=== PATIENT | female | born 1955 | race Caucasian/White ===

== ENCOUNTER 2019-12-21 12:35 | Inpatient (IN) | payer MEDICARE ==
[~2019-12-21] VITALS: Ht 157.5 cm; Wt 85.5 kg
--- NOTE | 2019-12-21 12:59 | NUR ---
SEE TRIAGE NOTE. PULSE OX AND BP CUFF PLACED. URINE COLLECTED/AT BS. MED STUDENT IN TO ASSESS.
--- NOTE | 2019-12-21 13:22 | NUR ---
REPORT TO RAMONITA, TRANSFER OF CARE AT THIS TIME.
--- NOTE | 2019-12-21 13:23 | NUR ---
PT SLEEPING, DESAT TO 83% ON RA. 2LITERS VIA NC PLACED. MED STUDENT IN TO SEE.
[2019-12-21] MEDS ORDERED: PROMETHAZINE 25 MG/ML, 1ML IM ONE ×2 (13:30→23:30)
[2019-12-21] MEDS ORDERED: HYDROmorphone 2 MG/ML, 1ML IVPush PRN (13:30)
[2019-12-21] MEDS ORDERED: SODIUM CHLORIDE FLUSH 10ML SYR IVF ONE (13:30)
[2019-12-21] MEDS ORDERED: SODIUM CHLORIDE 0.9% 1,000ML IVBOLUS ONE (13:30)
[2019-12-21] MEDS ORDERED: PROMETHAZINE 25 MG/ML, 1ML ONE (13:37)
[2019-12-21] MEDS ORDERED: HYDROmorphone 1 MG/ML, 1ML INJ ONE (13:37)
[2019-12-21 13:46] LABS: BASOPHILS # (AUTO) 0.05 x10^3/uL (0-0.1); BASOPHILS % (AUTO) 0 % (0-1); EOSINOPHILS # (AUTO) 0.01 x10^3/uL (0-0.4); EOSINOPHILS % (AUTO) 0 % (1-7); LYMPHOCYTES # (AUTO) 1.04 x10^3/uL (1-3.4); LYMPHOCYTES % (AUTO) 6 % (22-44); MD NO; MEAN CORPUSCULAR HGB CONC 33.7 g/dL (32.4-35.8); MEAN CORPUSCULAR VOLUME 89.2 fL (80-100); MEAN PLATELET VOLUME 10.5 fL (7.4-10.4); MONOCYTES # (AUTO) 0.11 x10^3/uL (0.2-0.8); MONOCYTES % (AUTO) 1 % (2-9); NEUTROPHILS # (AUTO) 15.89 x10^3/uL (1.8-6.8); NEUTROPHILS % (AUTO) 93 % (42-75); PLATELET COUNT 241 x10^3/uL (130-400); RED CELL DISTRIBUTION WIDTH 14.4 % (9.6-15.2)
[2019-12-21 13:54] LABS: INTERNATIONAL NORMALIZED RATIO 0.97 (0.93-1.1)
[2019-12-21 13:58] LABS: ALANINE AMINOTRANSFERASE 23 U/L (12-78); ALBUMIN 3.9 g/dL (3.4-5.0); ANION GAP 8 mmol/L (5-15); CALCIUM 9.1 mg/dL (8.5-10.1); CHLORIDE 113 mmol/L (98-107); CREATININE 1.41 mg/dL (0.55-1.02)
[2019-12-21 14:00] LABS: ALKALINE PHOSPHATASE 78 U/L (45-117); BILIRUBIN,TOTAL 0.6 mg/dL (0.2-1.0); TOTAL PROTEIN 7.7 g/dL (6.4-8.2)
--- NOTE | 2019-12-21 14:05 | NUR ---
PT MEDICATED ORDRED. PT ASLEEP AT THIS TIME. WAITING FOR RESULTS.
[2019-12-21] MEDS ORDERED: SPIR25TA5 PO (14:31)
[2019-12-21] MEDS ORDERED: VERA120T8 PO (14:31)
[2019-12-21] MEDS ORDERED: PRAV20TA2 PO (14:31)
[2019-12-21] MEDS ORDERED: LISI40TA PO (14:31)
[2019-12-21] MEDS ORDERED: OMEP-110 PO (14:31)
[2019-12-21] MEDS ORDERED: CEFTRIAXONE PMX 1GM/50ML 50 ML IV ONE (15:00)
[2019-12-21] MEDS ORDERED: METRONIDAZOLE PMX 500MG/100ML 100 ML IV ONE (15:00)
[2019-12-21] MEDS ORDERED: SODIUM CHLORIDE 0.9%, 500ML IVBOLUS ONE (15:00)
--- NOTE | 2019-12-21 15:00 | NUR ---
PT TO CT.
[2019-12-21] MEDS ORDERED: OMNIPAQUE 350 MG/ML, 100ML BOTTLE ONE (15:29)
[2019-12-21] MEDS ORDERED: CEFTRIAXONE PMX 1GM/50ML 50 ML ONE (15:59)
[2019-12-21] MEDS ORDERED: METRONIDAZOLE PMX 500MG/100ML 100 ML ONE (15:59)
--- NOTE | 2019-12-21 16:15 | NUR ---
ANTIBITICS STARTED PER MD ORDER. PER DR. HATHAWAY NO BLOOD CULTURES NEEDED BEFORE ANTIBIOTICS.
[2019-12-21 16:19] LABS: MICROSCOPIC AUTO
--- NOTE | 2019-12-21 16:43 | NUR ---
PT REQUESTING TYLENOL FOR COBB. AWARE.
[2019-12-21] MEDS ORDERED: ACETAMINOPHEN 325 MG TABLET ONE (17:26)
[2019-12-21] MEDS: ACETAMINOPHEN 325 MG TABLET PO PRN (17:30)
[2019-12-21] MEDS: METRONIDAZOLE PMX 500MG/100ML 100 ML IV SCH (17:30)
[2019-12-21] MEDS: HEPARIN 5,000 UNITS/ML, 1ML SQ SCH (17:30)
[2019-12-21] MEDS ORDERED: CEFTRIAXONE PMX 1GM/50ML 50 ML IV SCH (17:30)
[2019-12-21] MEDS: LACTOBACILLUS CHEW TABLET PO SCH ×4 (18:00→21:55)
--- NOTE | 2019-12-21 19:40 | NUR ---
TASK RN, COVERING MEAL BREAK. ATTEMPT TO CALL REPORT. RECEIVING RN NOT AVAILABLE, WILL CALL BACK.
--- NOTE | 2019-12-21 20:09 | NUR ---
REPORT TO MICHAEL WHEELER READY FOR TRANSPORT.
[2019-12-21] MEDS: PRAVASTATIN 20 MG TABLET PO SCH ×3 (21:00→21:55)
[2019-12-21] MEDS: SODIUM CHLORIDE 0.9% 1,000 ML IV SCH (21:05)
[2019-12-21] MEDS ORDERED: DICYCLOMINE 10 MG/ML, 2ML IM ONE (21:30)
[2019-12-21] MEDS: ONDANSETRON 2MG/ML, 2ML IVPush PRN (22:13)
[2019-12-21] MEDS ORDERED: morphine SULFATE 10 MG/ML, 1ML IVPush ONE (23:30)
[2019-12-22] MEDS: HEPARIN 5,000 UNITS/ML, 1ML SQ SCH ×3 (01:13→17:36)
[2019-12-22] MEDS: METRONIDAZOLE PMX 500MG/100ML 100 ML IV SCH ×3 (01:37→17:36)
[2019-12-22 01:40] LABS: CLOSTRIDIUM DIFFICILE ANTIGEN NEGATIVE; CLOSTRIDIUM DIFFICILE TOXIN NEGATIVE (Negative)
[2019-12-22 03:29] VITALS: BP 158/89
[2019-12-22] MEDS: LACTOBACILLUS CHEW TABLET PO SCH ×4 (03:33→20:30)
[2019-12-22 05:27] LABS: BASOPHILS # (AUTO) 0.05 x10^3/uL (0-0.1); BASOPHILS % (AUTO) 0 % (0-1); EOSINOPHILS # (AUTO) 0.01 x10^3/uL (0-0.4); EOSINOPHILS % (AUTO) 0 % (1-7); LYMPHOCYTES # (AUTO) 2.11 x10^3/uL (1-3.4); LYMPHOCYTES % (AUTO) 14 % (22-44); MD NO; MEAN CORPUSCULAR HEMOGLOBIN 29.9 pg (27.0-34.8); MEAN CORPUSCULAR HGB CONC 33.5 g/dL (32.4-35.8); MEAN CORPUSCULAR VOLUME 89.2 fL (80-100); MEAN PLATELET VOLUME 10.5 fL (7.4-10.4); MONOCYTES % (AUTO) 6 % (2-9); NEUTROPHILS # (AUTO) 11.86 x10^3/uL (1.8-6.8); NEUTROPHILS % (AUTO) 79 % (42-75); PLATELET COUNT 208 x10^3/uL (130-400); RED BLOOD COUNT 4.48 x10^6/uL (3.82-5.3); RED CELL DISTRIBUTION WIDTH 14.5 % (9.6-15.2)
[2019-12-22] MEDS: ONDANSETRON 2MG/ML, 2ML IVPush PRN ×2 (05:33→09:13)
[2019-12-22 05:35] LABS: ALBUMIN 3.3 g/dL (3.4-5.0); ANION GAP 5 mmol/L (5-15); CALCIUM 8.2 mg/dL (8.5-10.1); CHLORIDE 115 mmol/L (98-107)
[2019-12-22] MEDS: SODIUM CHLORIDE 0.9% 1,000 ML IV SCH ×2 (05:36→20:32)
[2019-12-22 05:47] LABS: ALANINE AMINOTRANSFERASE 20 U/L (12-78); ALKALINE PHOSPHATASE 63 U/L (45-117); BILIRUBIN,TOTAL 0.5 mg/dL (0.2-1.0); CREATININE 1.12 mg/dL (0.55-1.02); TOTAL PROTEIN 6.4 g/dL (6.4-8.2)
[2019-12-22 07:41] VITALS: BP 135/76
[2019-12-22] MEDS: MAGNESIUM SULFATE PMX 2GM/50ML 50 ML IV ONE ×2 (08:06→08:58)
[2019-12-22] MEDS: FAMOTIDINE 20 MG/2 ML IVPush SCH ×2 (08:07→09:13)
[2019-12-22] MEDS: SPIRONOLACTONE 25 MG TABLET PO SCH (08:08)
[2019-12-22] MEDS: LISINOPRIL 40 MG TABLET PO SCH (08:08)
[2019-12-22] MEDS: VERAPAMIL ER 120MG TABLET.ER PO SCH (08:09)
[2019-12-22] MEDS ORDERED: DIPHENHYDRAMINE 50 MG/ML, 1ML ONE (09:10)
[2019-12-22] MEDS ORDERED: DIPHENHYDRAMINE 50 MG/ML, 1ML IVPush ONE (09:30)
[2019-12-22 13:29] VITALS: BP 116/68
[2019-12-22] MEDS: CEFTRIAXONE PMX 1GM/50ML 50 ML IV SCH (14:37)
[2019-12-22] MEDS: morphine SULFATE 10 MG/ML, 1ML IVPush PRN ×2 (16:08→23:41)
[2019-12-22 18:46] VITALS: BP 102/53
[2019-12-22] MEDS: PRAVASTATIN 20 MG TABLET PO SCH (20:30)
[2019-12-23] VITALS (7 sets, daily range): BP systolic 89–133; BP diastolic 50–74
[2019-12-23] MEDS: METRONIDAZOLE PMX 500MG/100ML 100 ML IV SCH ×3 (01:14→17:43)
[2019-12-23] MEDS: HEPARIN 5,000 UNITS/ML, 1ML SQ SCH ×3 (01:14→17:43)
[2019-12-23] MEDS: LACTOBACILLUS CHEW TABLET PO SCH ×5 (05:28→20:27)
[2019-12-23] MEDS: SODIUM CHLORIDE 0.9% 1,000 ML IV SCH ×3 (05:30→23:33)
[2019-12-23 05:51] LABS: BASOPHILS # (AUTO) 0.07 x10^3/uL (0-0.1); BASOPHILS % (AUTO) 1 % (0-1); EOSINOPHILS # (AUTO) 0.16 x10^3/uL (0-0.4); EOSINOPHILS % (AUTO) 2 % (1-7); LYMPHOCYTES # (AUTO) 3.97 x10^3/uL (1-3.4); LYMPHOCYTES % (AUTO) 38 % (22-44); MD NO; MEAN CORPUSCULAR HEMOGLOBIN 29.5 pg (27.0-34.8); MEAN CORPUSCULAR HGB CONC 32.7 g/dL (32.4-35.8); MEAN CORPUSCULAR VOLUME 90.3 fL (80-100); MEAN PLATELET VOLUME 10.4 fL (7.4-10.4); MONOCYTES % (AUTO) 6 % (2-9); NEUTROPHILS # (AUTO) 5.63 x10^3/uL (1.8-6.8); NEUTROPHILS % (AUTO) 54 % (42-75); PLATELET COUNT 172 x10^3/uL (130-400); RED BLOOD COUNT 3.93 x10^6/uL (3.82-5.3); RED CELL DISTRIBUTION WIDTH 14.7 % (9.6-15.2)
[2019-12-23 05:54] LABS: CHLORIDE 116 mmol/L (98-107)
[2019-12-23] MEDS: ONDANSETRON 2MG/ML, 2ML IVPush PRN (05:54)
[2019-12-23 05:59] LABS: ANION GAP 5 mmol/L (5-15); CALCIUM 7.9 mg/dL (8.5-10.1); CREATININE 0.93 mg/dL (0.55-1.02)
[2019-12-23] MEDS: FAMOTIDINE 20 MG/2 ML IVPush SCH (07:37)
[2019-12-23] MEDS: VERAPAMIL ER 120MG TABLET.ER PO SCH (07:59)
[2019-12-23] MEDS: LISINOPRIL 40 MG TABLET PO SCH (07:59)
[2019-12-23] MEDS: SPIRONOLACTONE 25 MG TABLET PO SCH (07:59)
[2019-12-23] MEDS ORDERED: SODIUM CHLORIDE 0.9%, 500ML IVBOLUS ONE (08:00)
[2019-12-23] MEDS ORDERED: SODIUM PHOSPHATE 20 MMOL in SODIUM CHLORIDE 0.9% 500 ML IV ONE (08:00)
[2019-12-23] MEDS: CEFTRIAXONE PMX 1GM/50ML 50 ML IV SCH (15:36)
[2019-12-23] MEDS ORDERED: SODIUM CHLORIDE 0.9% 1,000ML IVBOLUS ONE (20:00)
[2019-12-23] MEDS: PRAVASTATIN 20 MG TABLET PO SCH (20:27)
[2019-12-24 00:04] VITALS: BP 98/59
[2019-12-24] MEDS: HEPARIN 5,000 UNITS/ML, 1ML SQ SCH ×3 (01:30→17:19)
[2019-12-24] MEDS: METRONIDAZOLE PMX 500MG/100ML 100 ML IV SCH ×3 (01:53→17:39)
[2019-12-24] MEDS: LACTOBACILLUS CHEW TABLET PO SCH ×4 (05:21→21:00)
[2019-12-24 06:01] LABS: BASOPHILS # (AUTO) 0.04 x10^3/uL (0-0.1); BASOPHILS % (AUTO) 1 % (0-1); EOSINOPHILS # (AUTO) 0.12 x10^3/uL (0-0.4); EOSINOPHILS % (AUTO) 2 % (1-7); LYMPHOCYTES # (AUTO) 2.78 x10^3/uL (1-3.4); LYMPHOCYTES % (AUTO) 41 % (22-44); MD NO; MEAN CORPUSCULAR HEMOGLOBIN 29.1 pg (27.0-34.8); MEAN CORPUSCULAR HGB CONC 32.3 g/dL (32.4-35.8); MEAN CORPUSCULAR VOLUME 90.2 fL (80-100); MONOCYTES # (AUTO) 0.38 x10^3/uL (0.2-0.8); MONOCYTES % (AUTO) 6 % (2-9); NEUTROPHILS # (AUTO) 3.47 x10^3/uL (1.8-6.8); NEUTROPHILS % (AUTO) 51 % (42-75); PLATELET COUNT 177 x10^3/uL (130-400); RED BLOOD COUNT 3.83 x10^6/uL (3.82-5.3); RED CELL DISTRIBUTION WIDTH 14.2 % (9.6-15.2)
[2019-12-24 06:05] LABS: ANION GAP 6 mmol/L (5-15); CALCIUM 8.1 mg/dL (8.5-10.1); CHLORIDE 117 mmol/L (98-107); CREATININE 0.84 mg/dL (0.55-1.02)
[2019-12-24 07:08] VITALS: BP 160/82
[2019-12-24] MEDS: morphine SULFATE 10 MG/ML, 1ML IVPush PRN ×2 (07:40→18:29)
[2019-12-24] MEDS: LISINOPRIL 40 MG TABLET PO SCH (07:42)
[2019-12-24] MEDS: VERAPAMIL ER 120MG TABLET.ER PO SCH (07:42)
[2019-12-24] MEDS: SPIRONOLACTONE 25 MG TABLET PO SCH (07:42)
[2019-12-24] MEDS: FAMOTIDINE 20 MG/2 ML IVPush SCH (07:43)
[2019-12-24] MEDS: SODIUM CHLORIDE 0.9% 1,000 ML IV SCH ×2 (09:14→22:55)
[2019-12-24] MEDS ORDERED: GOLYTELY 4,000ML ORAL.SOL PO ONE (10:00)
[2019-12-24 13:19] VITALS: BP 141/71
[2019-12-24] MEDS: CEFTRIAXONE PMX 1GM/50ML 50 ML IV SCH (15:02)
[2019-12-24] MEDS ORDERED: GOLYTELY 4,000ML ORAL.SOL ONE (17:29)
[2019-12-24 18:20] VITALS: BP 184/74
[2019-12-24] MEDS ORDERED: hydrALAzine 20 MG/ML, 1ML IV ONE (18:25)
[2019-12-24] MEDS: ONDANSETRON 2MG/ML, 2ML IVPush PRN (18:52)
[2019-12-24 19:54] VITALS: BP 146/85
[2019-12-24] MEDS ORDERED: DIPHENHYDRAMINE 50 MG/ML, 1ML IVPush ONE (20:00)
[2019-12-24] MEDS: PRAVASTATIN 20 MG TABLET PO SCH (21:00)
[2019-12-24] MEDS ORDERED: PROMETHAZINE 25 MG/ML, 1ML IM ONE (23:30)
[2019-12-25] MEDS: HEPARIN 5,000 UNITS/ML, 1ML SQ SCH ×3 (01:30→17:39)
[2019-12-25] MEDS: METRONIDAZOLE PMX 500MG/100ML 100 ML IV SCH ×3 (01:37→17:39)
[2019-12-25 01:50] VITALS: BP 115/74
[2019-12-25 05:17] LABS: CHLORIDE 114 mmol/L (98-107)
[2019-12-25 05:24] LABS: ALANINE AMINOTRANSFERASE 23 U/L (12-78); ALBUMIN 3.1 g/dL (3.4-5.0); ALKALINE PHOSPHATASE 51 U/L (45-117); ANION GAP 7 mmol/L (5-15); BILIRUBIN,TOTAL 0.4 mg/dL (0.2-1.0); CALCIUM 8.6 mg/dL (8.5-10.1); CREATININE 0.83 mg/dL (0.55-1.02); TOTAL PROTEIN 5.6 g/dL (6.4-8.2)
[2019-12-25 05:40] LABS: BASOPHILS # (AUTO) 0.04 x10^3/uL (0-0.1); BASOPHILS % (AUTO) 1 % (0-1); EOSINOPHILS # (AUTO) 0.04 x10^3/uL (0-0.4); EOSINOPHILS % (AUTO) 1 % (1-7); LYMPHOCYTES # (AUTO) 2.57 x10^3/uL (1-3.4); LYMPHOCYTES % (AUTO) 31 % (22-44); MD NO; MEAN CORPUSCULAR HEMOGLOBIN 29.2 pg (27.0-34.8); MEAN CORPUSCULAR HGB CONC 32.2 g/dL (32.4-35.8); MEAN CORPUSCULAR VOLUME 90.5 fL (80-100); MEAN PLATELET VOLUME 10.1 fL (7.4-10.4); MONOCYTES # (AUTO) 0.47 x10^3/uL (0.2-0.8); MONOCYTES % (AUTO) 6 % (2-9); NEUTROPHILS # (AUTO) 5.29 x10^3/uL (1.8-6.8); NEUTROPHILS % (AUTO) 63 % (42-75); PLATELET COUNT 172 x10^3/uL (130-400); RED BLOOD COUNT 3.98 x10^6/uL (3.82-5.3); RED CELL DISTRIBUTION WIDTH 14.2 % (9.6-15.2)
[2019-12-25] MEDS: LACTOBACILLUS CHEW TABLET PO SCH ×4 (06:00→19:49)
[2019-12-25] MEDS ORDERED: CHLORHEXIDINE 15 ML UDC ONE (07:12)
[2019-12-25] MEDS ORDERED: CHLORHEXIDINE 15 ML UDC MM ONE (07:30)
[2019-12-25] MEDS ORDERED: PROPOFOL 10 MG/ML, 20ML ONE (07:57)
[2019-12-25] MEDS ORDERED: DIAZEPAM 5 MG/ML, 2ML IVPush PRN (08:30)
[2019-12-25] MEDS ORDERED: HYDROmorphone 2 MG/ML, 1ML IVPush PRN (08:30)
[2019-12-25] MEDS ORDERED: MEPERIDINE/PF 25MG/0.5ML IVPush PRN (08:30)
[2019-12-25] MEDS ORDERED: KETOROLAC 30 MG/1 ML IV PRN (08:30)
[2019-12-25] MEDS ORDERED: ALBUTEROL SULFATE 2.5 MG/3 ML NPPB PRN (08:30)
[2019-12-25] MEDS ORDERED: OXYcodone 5 MG/5 ML ORAL.SOL UDC PO PRN (08:30)
[2019-12-25] MEDS ORDERED: LABETALOL 5MG/ML, 20ML IV PRN (08:30)
[2019-12-25] MEDS ORDERED: hydrALAzine 20 MG/ML, 1ML IV PRN (08:30)
[2019-12-25] MEDS ORDERED: PROMETHAZINE 25 MG/ML, 1ML IV PRN (08:30)
[2019-12-25] MEDS ORDERED: ACETAMINOPHEN 325 MG TABLET PO PRN (08:30)
[2019-12-25 09:15] VITALS: BP 142/72
[2019-12-25] MEDS: SPIRONOLACTONE 25 MG TABLET PO SCH (09:28)
[2019-12-25] MEDS: LISINOPRIL 40 MG TABLET PO SCH (09:28)
[2019-12-25] MEDS: VERAPAMIL ER 120MG TABLET.ER PO SCH (09:28)
[2019-12-25] MEDS: ACETAMINOPHEN 325 MG TABLET PO PRN (09:28)
[2019-12-25] MEDS: FAMOTIDINE 20 MG/2 ML IVPush SCH (09:28)
[2019-12-25] MEDS: SODIUM CHLORIDE 0.9% 1,000 ML IV SCH ×2 (09:34→17:40)
[2019-12-25 13:05] VITALS: BP 121/74
[2019-12-25] MEDS: CEFTRIAXONE PMX 1GM/50ML 50 ML IV SCH (14:43)
[2019-12-25 18:52] VITALS: BP 145/61
[2019-12-25] MEDS: PRAVASTATIN 20 MG TABLET PO SCH (19:49)
[2019-12-26 00:43] VITALS: BP 117/72
[2019-12-26] MEDS: METRONIDAZOLE PMX 500MG/100ML 100 ML IV SCH ×3 (01:39→17:10)
[2019-12-26] MEDS: HEPARIN 5,000 UNITS/ML, 1ML SQ SCH ×3 (03:27→17:10)
[2019-12-26] MEDS: SODIUM CHLORIDE 0.9% 1,000 ML IV SCH ×2 (04:56→15:27)
[2019-12-26] MEDS: LACTOBACILLUS CHEW TABLET PO SCH ×3 (05:00→15:27)
[2019-12-26 05:26] LABS: BASOPHILS # (AUTO) 0.04 x10^3/uL (0-0.1); BASOPHILS % (AUTO) 1 % (0-1); EOSINOPHILS # (AUTO) 0.12 x10^3/uL (0-0.4); EOSINOPHILS % (AUTO) 2 % (1-7); LYMPHOCYTES # (AUTO) 2.39 x10^3/uL (1-3.4); LYMPHOCYTES % (AUTO) 37 % (22-44); MD NO; MEAN CORPUSCULAR HEMOGLOBIN 29.5 pg (27.0-34.8); MEAN CORPUSCULAR HGB CONC 32.9 g/dL (32.4-35.8); MEAN CORPUSCULAR VOLUME 89.8 fL (80-100); MEAN PLATELET VOLUME 10.2 fL (7.4-10.4); MONOCYTES % (AUTO) 6 % (2-9); NEUTROPHILS # (AUTO) 3.55 x10^3/uL (1.8-6.8); NEUTROPHILS % (AUTO) 55 % (42-75); PLATELET COUNT 173 x10^3/uL (130-400); RED BLOOD COUNT 3.91 x10^6/uL (3.82-5.3); RED CELL DISTRIBUTION WIDTH 14.7 % (9.6-15.2)
[2019-12-26 05:31] LABS: ANION GAP 7 mmol/L (5-15); CALCIUM 8.5 mg/dL (8.5-10.1); CHLORIDE 115 mmol/L (98-107); CREATININE 0.82 mg/dL (0.55-1.02)
[2019-12-26 07:15] VITALS: BP 153/74
[2019-12-26] MEDS: LISINOPRIL 40 MG TABLET PO SCH (08:16)
[2019-12-26] MEDS: ONDANSETRON 2MG/ML, 2ML IVPush PRN (08:17)
[2019-12-26] MEDS: SPIRONOLACTONE 25 MG TABLET PO SCH (08:17)
[2019-12-26] MEDS: VERAPAMIL ER 120MG TABLET.ER PO SCH (08:17)
[2019-12-26] MEDS ORDERED: FAMOTIDINE 20 MG TABLET PO SCH (09:00)
[2019-12-26 13:40] VITALS: BP 136/65
[2019-12-26] MEDS ORDERED: DIPHENOXYLATE/ATROPINE TABLET PO PRN (14:30)
[2019-12-26] MEDS: CEFTRIAXONE PMX 1GM/50ML 50 ML IV SCH (15:27)
[2019-12-26] MEDS ORDERED: ACID1TAB7 PO (18:32)
[2019-12-26] MEDS ORDERED: CHOL239. PO (18:32)
[2019-12-26] MEDS ORDERED: DIPH1TAB6 PO (18:32)
[2019-12-26] MEDS ORDERED: METR-90 PO (18:32)
[2019-12-26] MEDS ORDERED: CEFD300C37 PO (18:32)
[2019-12-26] MEDS ORDERED: CHOLESTYRAMINE LIGHT 4GM PACKET PO SCH (21:00)
== END 2019-12-26 20:02 | disposition home or self-care (01) | DRG 391 ==
LOC: ED 14:24 → EDIP 16:54 → 3N 20:25
PROVIDERS: ADMIT Internal Medicine; ATTEND Internal Medicine
PROC: 0DB68ZX Excision of Stomach, Via Natural or Artificial Opening Endoscopic, Diagnostic (ICD-10-PCS; 2019-12-25)
PROC: 0DBN8ZX Excision of Sigmoid Colon, Via Natural or Artificial Opening Endoscopic, Diagnostic (ICD-10-PCS; 2019-12-25)
PROC: 0DBM8ZX Excision of Descending Colon, Via Natural or Artificial Opening Endoscopic, Diagnostic (ICD-10-PCS; 2019-12-25)
PROC: 0DBP8ZX Excision of Rectum, Via Natural or Artificial Opening Endoscopic, Diagnostic (ICD-10-PCS; 2019-12-25)
PROC: 0DB98ZX Excision of Duodenum, Via Natural or Artificial Opening Endoscopic, Diagnostic (ICD-10-PCS; principal; 2019-12-25 07:30)
DX: A09 Infectious gastroenteritis and colitis, unspecified (principal); N17.0 Acute kidney failure with tubular necrosis; E87.2 Acidosis; K63.3 Ulcer of intestine; K55.9 Vascular disorder of intestine, unspecified; E86.0 Dehydration; K57.30 Diverticulosis of large intestine without perforation or abscess without bleeding; K44.9 Diaphragmatic hernia without obstruction or gangrene; K82.8 Other specified diseases of gallbladder; Z88.2 Allergy status to sulfonamides; Z88.8 Allergy status to other drugs, medicaments and biological substances; E78.5 Hyperlipidemia, unspecified; F12.90 Cannabis use, unspecified, uncomplicated; F17.210 Nicotine dependence, cigarettes, uncomplicated; I10 Essential (primary) hypertension; Z66 Do not resuscitate; Z82.49 Family history of ischemic heart disease and other diseases of the circulatory system; Z90.710 Acquired absence of both cervix and uterus; Z20.828 Contact with and (suspected) exposure to other viral communicable diseases
CPT/HCPCS: 36415; 74174; 80048; 80053; 81001; 83605; 83690; 83735; 84100; 84443; 85025; 85610; 87046; 87324; 87635; 88305; 93005; 93306; 96361; 96365; 96372; 96375; 99285; G0378; J0696; J1170; J1644; J2405; J2550; J2704; Q9967; J0360; J0500; J1200; J2270; J3475; J3490; J7030; J7040